=== PATIENT | female | born 1980 | race Caucasian/White ===

== ENCOUNTER 2025-02-17 16:59 | Emergency (ER) | payer OTHER, SELFPAY ==
[2025-02-17 17:02] VITALS: BP 126/83
--- NOTE | 2025-02-17 19:17 | ED.GENMED ---
History of Present Illness
<Liza Ragsdale MD, Resident - Last Filed: 02/17/25 19:43>
General
Chief Complaint: Crisis Evaluation
Source: patient
Time Seen by Provider: 02/17/25 18:06
History of Present Illness
History of Present Illness:
Patient is a 44-year-old female, with no significant past medical history who is here for being emotionally overwhelmed, panic attack and suicidal ideation with no plan/intent.
She has has some issues ongoing with her , that triggered her anxiety and she felt like she was in emotionally very bad place and she decided to come to the ER. At the time of the evaluation, her was at bedside and they communicated
that they were in a good place and would like to go home. Teri, told that she has a therapist which she can talk to but has been seeing the therapist since she was 14 years of age. Today, she came in because she was feeling overwhelmed, but
right now she feels fine and would like to go home.
She denies any suicidal plan/intent
She does not have an official diagnosis of anxiety/depression and does not see a psychiatrist but only talks to therapist for emotional support.
Past History
<Liza Ragsdale MD, Resident - Last Filed: 02/17/25 19:43>
Past History
ED Past Medical History: Negative IDDM or NIDDM
ED Past Surgical History: None
Social History
Personal:
Living: with family
Employment: Employed
Review of Systems
<Liza Ragsdale MD, Resident - Last Filed: 02/17/25 19:43>
Review of Systems
Constitutional: Reports no symptoms
EENT: Reports no symptoms
Respiratory: Reports no symptoms
Cardiac: Reports no symptoms
ABD/GI: Reports no symptoms
: Reports no symptoms
Musculoskeletal: Reports no symptoms
Skin: Reports no symptoms
Neurological: Reports headache
Endocrine: Reports no symptoms
Hematologic/Lymphatic: Reports no symptoms
Psychiatric: Reports no symptoms
Phy Exam
<Liza Ragsdale MD, Resident - Last Filed: 02/17/25 19:43>
General Physical Exam
General Presentation: well appearing and no apparent distress
General Skin: warm and dry
General Habitus: normal
General Mental: alert
General Hydration: appears well hydrated
Cardiovascular Exam
Cardiovascular Exam: regular rate/rhythm, normal peripheral pulses and tachycardia
Pulmonary Exam
Pulmonary Exam: lungs clear, no respiratory distress, no rhonchi and no cough
Gastrointestinal Exam
Gastrointestinal Exam: normal bowel sounds, non tender and soft
Neurological Exam
Neurological Exam: alert, oriented x3 and no motor deficits
Musculoskeletal Exam
Musculoskeletal Exam: full ROM
Skin Exam
Skin Exam: normal color and warm/dry
Psychiatric Exam
Psychiatric Exam: normal mood/affect
Course
<Liza Ragsdale MD, Resident - Last Filed: 02/17/25 19:43>
Orders/Labs/Results
Orders:
Orders
02/17/25 17:16
1:1 Observation - Suicide/ Violent Behavior As Directed
Vital Signs
Initial and Last Documented VS:
Initial Vital Signs
Temp Pulse Resp BP Pulse Ox
97.8 F 86 18 126/83 99
02/17/25 17:02 02/17/25 17:02 02/17/25 17:02 02/17/25 17:02 02/17/25 17:02
Last Documented Vital Signs
Temp Pulse Resp BP Pulse Ox
97.8 F 82 18 128/77 99
02/17/25 17:02 02/17/25 19:40 02/17/25 19:40 02/17/25 19:40 02/17/25 19:40
<Lamar Dupree MD - Last Filed: 02/17/25 19:43>
Orders/Labs/Results
Orders:
Orders
02/17/25 17:16
1:1 Observation - Suicide/ Violent Behavior As Directed
Vital Signs
Initial and Last Documented VS:
Initial Vital Signs
Temp Pulse Resp BP Pulse Ox
97.8 F 86 18 126/83 99
02/17/25 17:02 02/17/25 17:02 02/17/25 17:02 02/17/25 17:02 02/17/25 17:02
Last Documented Vital Signs
Temp Pulse Resp BP Pulse Ox
97.8 F 82 18 128/77 99
02/17/25 17:02 02/17/25 19:40 02/17/25 19:40 02/17/25 19:40 02/17/25 19:40
<Liza Ragsdale MD, Resident - Last Filed: 02/17/25 19:43>
MDM/Problems Addressed
Differential Diagnosis Includes:
Panic attack
Anxiety/depression
MDM/Problems Addressed:
Patient came in feeling emotionally overwhelmed, had some issues with her and stress at home, with her history of suicide she felt like she should get herself checked out. S she does report some occasional thoughts of suicide but she does
not have any intent/plan, has a therapist and family support at home.
Patient wants to go home
Advised the patient to come used like she needs additional help or would like to have information about the resources.
Reassure and discharge the patient
<Liza Ragsdale MD, Resident - Last Filed: 02/17/25 19:43>
*Pulse Oximetry
SaO2: 99
Oxygen Mode of Delivery: Room air
Patient hypoxic: no
*Critical Care Note
Total Time (30-74mins, 75-104mins- exclusive of procedures): Not Applicable
ED Attending Note
<Liza Ragsdale MD, Resident - Last Filed: 02/17/25 19:43>
-
Portions of this chart may have been created with voice recognition software.� Occasional wrong word or��sound alike� substitutions may have occurred due to the inherent limitations of voice recognition software.
<Lamar Dupree MD - Last Filed: 02/17/25 19:43>
ED Attending Note
Patient seen and examined by attending physician: Yes
I performed a history and physical exam of patient and discussed management with resident, I reviewed resident's note and agree with documented findings and plan of care.: Yes
ED Attending Note:
44-year-old female with a history of depression presents emergency department after having a disagreement with her , and becoming extremely upset to the point where she felt like she could not regulate her emotions. She was in the company of
her parents who were concerned about her and brought her to the emergency department. She states that she did not know they were bringing her here. Her is now bedside and she states she feels much better now. She continuously reiterates
that she is safe, does not have thoughts of wanting to harm herself, does not feel that she is a burden to others, and has much to live for including her teenage son and who loves her. She states that she 'gets like this' every once in a
while and that her parents just did not know what to do. Patient has had thoughts of suicide in the past but states that they are fleeting and she knows not to act on it, does not have a plan, etc. No physical complnts, no ingestions. On exam,
pleasant, calm, oriented. hrt rrr lung cta. neuro intact. psych appropriate, denies si/hi. Pt contracts for safety, already has therapist in place who she plans to see promptly.
Discharge Plan
Departure
Patient Disposition: Home (Routine Discharge)
Date of Disposition: 02/17/25
Time of Disposition: 19:24
Patient with high blood pressure during this ER visit?: No
Discharge Problem:
Panic attack
Instructions: Anxiety, Adult (DC)
Prescriptions:
No Action
No Meds [No Current Medications]
0
ondansetron 4 MG tablet,disintegrating
4 mg PO Q8H Qty: 10 0RF
Referrals:
Christopher Flower MD [Family Provider, Family Practice]
Activity Restrictions/Additional Instructions:
PLEASE TALK TO YOUR THERAPIST ABOUT THE CURRENT EVENTS IN YOUR LIFE
REACH OUT TO FAMILY/FRIENDS FOR SUPPORT
PLEASE COME TO ER IN CASE YOU HAVE SUICIDAL IDEATION,HOMICIDAL IDEATION OR OTHER WORRISOME FEATURES
Interventions
Interventions:
*Risk Screen - Suicide Last Done: 02/17/25 17:15
*General Assessment Last Done: 02/17/25 17:02
*ED- Fall Risk Assessment Last Done: 02/17/25 17:02
*ED COVID-19 Vaccine History Last Done: 02/17/25 17:02
*ED Influenza Vaccine History Last Done: 02/17/25 17:02
*Nursing Disposition Last Done: 02/17/25 19:41
ED-Psychological Assessment Last Done: 02/17/25 17:16
Discharge Date and Time
Discharge Date/Time: 02/17/25 19:41
Print Language: MONEGASQUE
[2025-02-17 19:40] VITALS: BP 128/77
== END 2025-02-17 19:41 | disposition home or self-care (01) ==
LOC: EMR 16:59
PROVIDERS: EMERGENCY PHYSICIAN Emergency Medicine; FAMILY PHYSICIAN Family Medicine
DX: F41.0 Panic disorder [episodic paroxysmal anxiety] (principal); R45.851 Suicidal ideations; Z63.0 Problems in relationship with spouse or partner; Z91.51 Personal history of suicidal behavior
CPT/HCPCS: 99283